=== PATIENT | male | born 1965 | race Caucasian/White ===

== ENCOUNTER 2020-09-21 08:56 | Outpatient (CLI) | payer BC, OTHER, SELFPAY ==
[2020-09-21 11:17] LABS: Anion Gap 11 mmol/L (8-16); Blood Urea Nitrogen 26 mg/dL (7-18); Calcium 9.5 mg/dL (8.5-10.1); Carbon Dioxide 29 mmol/L (21-32); Chloride 102 mmol/L (98-108); Estimated Glomerular Filt Rate 50; Glucose 145 mg/dL (70-99); Osmolality Calculated 301 mOsm/kg (285-295); Potassium 3.9 mmol/L (3.5-5.1); Sodium 142 mmol/L (136-145)
== END 2020-09-21 08:57 | disposition home or self-care (01) ==
PROVIDERS: PCP Internal Medicine; Visit Provider Internal Medicine Cardiovascular Disease
DX: Z79.899 Other long term (current) drug therapy (principal)
CPT/HCPCS: 36415; 80048

== ENCOUNTER 2020-10-24 07:59 | Outpatient (CLI) | payer BC, OTHER, SELFPAY ==
[2020-10-24 08:38] LABS: Add Urine Microscopic? YES; Appearance Urine Clear (Clear); Basophils Absolute Auto 0.07 K/mm3 (0.00-0.10); Basophils Percent Auto 0.7 % (0.0-1.0); Bilirubin Urine Negative (Negative); Blood Urine 1+ (Negative); Color Urine Yellow (Yellow); Eosinophils Absolute Auto 0.22 K/mm3 (0.02-0.50); Eosinophils Percent Auto 2.3 % (1.0-6.0); Glucose Urine UA Negative (Negative); Hematocrit 44.6 % (40.0-54.0); Hemoglobin 14.1 g/dL (14.0-18.0); Immature Granulocyte Absolute 0.06 K/mm3 (0.00-0.00); Immature Granulocyte Percent A 0.6 % (0.0-0.0); Ketones Urine Negative (Negative); Leukocyte Esterase Ur Negative (Negative); Lymphocytes Absolute Auto 2.05 K/mm3 (1.10-4.50); Lymphocytes Percent Auto 21.6 % (18.0-42.0); Mean Corpuscular HGB Conc 31.6 g/dL (32.0-36.0); Mean Corpuscular Volume 82.3 fL (78.0-102.0); Mean Platelet Volume 10.4 fl (8.7-11.0); Monocytes Absolute Auto 0.53 K/mm3 (0.10-0.90); Monocytes Percent Auto 5.6 % (2.0-11.0); Neutrophils Absolute Auto 6.5 K/mm3 (1.7-7.2); Neutrophils Percent Auto 69.2 % (50.0-70.0); Nitrate Urine Negative (Negative); Platelet Count Result 278 K/mm3 (150-420); Protein Urine Negative (Negative); Red Blood Count 5.42 M/mm3 (4.70-6.10); Red Cell Distribution Width 16.2 % (11.6-14.4); Urobilinogen Urine 0.2 mg/dL (0.2-1.0); White Blood Count 9.5 K/mm3 (4.8-10.8)
[2020-10-24 08:46] LABS: Bacteria Urine Trace /hpf; WBC Urine 0-3 /hpf (0-3)
[2020-10-24 08:55] LABS: Hemoglobin A1C 7.5 % (<5.7)
[2020-10-24 09:02] LABS: BNP 565 pg/mL (0-100)
[2020-10-24 09:25] LABS: Albumin Level 3.5 g/dL (3.4-5.0); Alkaline Phosphatase 105 U/L (46-116); Anion Gap 10 mmol/L (8-16); Aspartate Amino Transferase 10 U/L (15-37); Bilirubin,Total 1.1 mg/dL (0.00-1.00); Blood Urea Nitrogen 37 mg/dL (7-18); Carbon Dioxide 29 mmol/L (21-32); Chloride 102 mmol/L (98-108); Cholesterol 135 mg/dL (0-200); Creatine Kinase 115 U/L (39-308); Estimated Glomerular Filt Rate 45; Glucose 200 mg/dL (70-99); HDL Direct 41 mg/dL (40-60); LDL Cholesterol Calculated 79 mg/dL (<130); Osmolality Calculated 306 mOsm/kg (285-295); Potassium 5.1 mmol/L (3.5-5.1); Prostate Specific Antigen 1.3 ng/mL (< OR = 4.0); Sodium 141 mmol/L (136-145); Total Protein 7.2 g/dL (6.4-8.2); Triglycerides 77 mg/dL (0-150)
[2020-10-24 09:26] LABS: Creatinine Urine 78.75 mg/dL (40-278); MALB Creatinine Ratio 105.9 mg/g (0-30); Microalbumin Urine Random 83.4 mg/L
[2020-10-24 09:36] LABS: Alanine Aminotransferase 21 U/L (16-63)
== END 2020-10-24 08:00 | disposition home or self-care (01) ==
PROVIDERS: PCP Internal Medicine; Visit Provider Internal Medicine
DX: I50.9 Heart failure, unspecified (principal); I10 Essential (primary) hypertension; E11.65 Type 2 diabetes mellitus with hyperglycemia; E78.2 Mixed hyperlipidemia; I42.0 Dilated cardiomyopathy; Z12.5 Encounter for screening for malignant neoplasm of prostate
CPT/HCPCS: 36415; 80053; 80061; 81001; 82043; 82550; 83036; 83880; 84153; 85025; G0103

== ENCOUNTER 2021-09-25 08:18 | Outpatient (CLI) | payer BC, OTHER, SELFPAY ==
--- NOTE | ~2021-09-25 | XR_ITS ---
EXAMINATION: XR chest 2V 09/25/2021 08:48 INDICATION: Cough PROCEDURE: 2 view chest COMPARISON: Comparison to multiple prior studies sequentially, with oldest reviewed study dated 03/2015. FINDINGS: The lungs are clear. The cardiomediastinal silhouette is within normal limits. There are no pleural effusions. There is no pneumothorax suspected. IMPRESSION: 1: NO ACUTE CARDIOPULMONARY DISEASE. Reviewed, dictated and finalized at location A. STRAIGHTENER
== END 2021-09-25 08:19 | disposition home or self-care (01) ==
LOC: CHSLAB 08:20
PROVIDERS: PCP Internal Medicine; Visit Provider Nurse Practitioner Family
DX: R05.9 Cough, unspecified (principal)
CPT/HCPCS: 71046

== ENCOUNTER 2021-10-04 02:12 | Inpatient (IN) | payer BC, OTHER, SELFPAY ==
--- NOTE | ~2021-10-04 | XR_ITS ---
XR chest 1V portable DATE: 10/04/2021 03:09 INDICATION: Dyspnea. Covid-positive. TECHNIQUE: 2 portable upright AP views on 10/04/2021 at 0306 hours COMPARISON: 09/25/2021 PA and lateral chest 05/03/2019 PA and lateral chest FINDINGS: Minimal atelectasis or infiltrate is suggested at the lung bases. There is chronic elevatio n of the right leaf of the diaphragm. Aortic arch calcification. Heart size is not optimally evaluated on AP projection. IMPRESSION: Minimal atelectasis or infiltrate at the lung bases is suggested Reviewed, dictated and finalized at location A. T OFFICE CLERK
[2021-10-04 02:15] VITALS: BP 115/68; PULSE 70; RESP 18; TEMP 36.8; O2SAT 98
--- NOTE | 2021-10-04 02:39 | ED.SOB ---
HPI - SOB/Dyspnea General Chief Complaint: Shortness of Breath/Dyspnea Stated Complaint: PAIN Source: patient, family and RN notes reviewed Mode of arrival: ambulatory Limitations: no limitations History of Present Illness HPI Narrative: patient has had an on and off cough for 6 weeks. He called his primary care physician 1 week ago and had an outpatient chest x-ray that was negative and was prescribed an antibiotic for bronchitis. His daughter tested positive for COVID 2 days ago and then yesterday he began having increased shortness of breath, cough and loss of taste. MD elicited complaint: shortness of breath Pertinent past history: congestive heart failure Onset (ago): day(s) (2) Context: recent illness Timing: constant and progressively worsening Severity: moderate Exacerbating factors: lying flat, exertion and coughing Relieving factors: nothing Known history of: congestive heart failure Associated symptoms: cough Treatment prior to arrival: none Related Data Home oxygen amount: none Home Medications Medication Instructions Recorded Confirmed allopurinol 100 mg PO DAILY 10/04/21 10/04/21 atorvastatin 20 mg PO DAILY 10/04/21 10/04/21 furosemide 40 mg PO DAILY 10/04/21 10/04/21 insulin aspart U-100 [Novolog 100 unit SUBCUT DAILY 10/04/21 10/04/21 U-100 Insulin aspart] insulin detemir U-100 [Levemir 100 unit SUBCUT BID 10/04/21 10/04/21 U-100 Insulin] metformin 500 mg PO DAILY 10/04/21 10/04/21 metoprolol succinate 200 mg PO DAILY 10/04/21 10/04/21 sacubitril-valsartan [Entresto] 49 tablet PO DAILY 10/04/21 10/04/21 sacubitril-valsartan [Entresto] 49 tablet PO DAILY 10/04/21 10/04/21 spironolactone 25 mg PO DAILY 10/04/21 10/04/21 Allergies Allergy/AdvReac Type Severity Reaction Status Date / Time No Known Allergies Allergy Verified 10/04/21 04:57 Review of Systems Review of Systems: All systems reviewed & are unremarkable except as noted in HPI and below Constitutional: Constitutional: Reports chills and Denies fever(s) Cardiovascular: Cardiovascular: Denies chest pain Gastrointestinal: Gastrointestinal: Denies diarrhea, Denies nausea and Denies vomiting COUNT INCLUDES THE [facility] Past Medical History Medical History (Updated 10/04/21 @ 05:02 by Matthew Clement MD) Atrial fibrillation Congestive heart failure Gout Hyperlipidemia Hypertension Morbid obesity Sleep apnea Type 2 diabetes mellitus Surgical History Surgical History (Updated 10/04/21 @ 03:08 by Matthew Clement MD) Hx of tonsillectomy Social History Social History (Updated 10/04/21 @ 03:08 by Matthew Clement MD) Smokeless tobacco user: chewing tobacco Substance use: never Exam Const: General: no acute distress, alert and ill appearing acutely Nutritional Appearance: obese morbidly obese Orientation/consciousness: patient oriented x3 HENMT: Head: normal to inspection Ears: external ears normal Eyes: Conjunctivae: conjunctivae normal Pupils: Equal, round and reactive pupils present EOM: EOMs intact bilaterally Neck: Neck: normal visual inspection Resp: Effort & Inspection: normal respiratory effort Auscultation: diminished lung sounds diffuse Cardio: Rate: regular rate Rhythm: regular rhythm GI: GI Palp: Yes Soft to palpation and No Tenderness to palpation present (GI) Auscultation: normal bowel sounds Back/Spine/Pelvis: Cervical Spine: cervical ROM normal Thoracic/Lumbar Spine: thoraco-lumbar ROM normal Skin: General skin exam: normal color Rashes: no rashes Neuro: General: patient oriented x3, moves all extremities, no meningeal signs, no focal motor deficits and CN's II-XI intact bilaterally Speech: normal speech Gait exam (Neuro): Normal gait present Extrem: General: normal to inspection and edema bilateral (2+ to mid marks) Psych: Mental Status: mental status grossly normal Affect: normal affect Thought content: Yes Normal thought content present Course Vital Signs Vital signs: Vital Signs Temperature
--- NOTE | 2021-10-04 02:55 | ECG_ITS ---
Measurements Intervals [place] Rate: 71 P: 22 SD: 193 QRS: -65 QRSD: 157 T: 130 QT: 448 QTc: 488 Interpretive Statements SINUS RHYTHM LEFT AXIS DEVIATION LEFT BUNDLE BRANCH BLOCK BASELINE ARTIFACT- I, II, III, AVR, AVL, AVF, V1, V3-V6 ABNORMAL ECG Electronically Signed On 10-04-2021 6:33:27 ANIMAL ANATOMY TEACHER by Sushant Ac D.O.
[2021-10-04 03:12] LABS: SARS-CoV-2 RNA PCR Positive (Negative)
[2021-10-04 03:17] LABS: Basophils Absolute Auto 0.04 K/mm3 (0.00-0.10); Basophils Percent Auto 0.6 % (0.0-1.0); Eosinophils Absolute Auto 0.15 K/mm3 (0.02-0.50); Eosinophils Percent Auto 2.3 % (1.0-6.0); Hematocrit 45.2 % (40.0-54.0); Hemoglobin 13.7 g/dL (14.0-18.0); Immature Granulocyte Absolute 0.03 K/mm3 (0.00-0.00); Immature Granulocyte Percent A 0.5 % (0.0-0.0); Lymphocytes Absolute Auto 1.72 K/mm3 (1.10-4.50); Lymphocytes Percent Auto 26.6 % (18.0-42.0); Mean Corpuscular HGB Conc 30.3 g/dL (32.0-36.0); Mean Corpuscular Hemoglobin 25.7 pg (27.0-31.0); Mean Corpuscular Volume 84.8 fL (78.0-102.0); Mean Platelet Volume 10.6 fl (8.7-11.0); Monocytes Percent Auto 6.2 % (2.0-11.0); Neutrophils Absolute Auto 4.1 K/mm3 (1.7-7.2); Neutrophils Percent Auto 63.8 % (50.0-70.0); Platelet Count Result 243 K/mm3 (150-420); Red Blood Count 5.33 M/mm3 (4.70-6.10); White Blood Count 6.5 K/mm3 (4.8-10.8)
[2021-10-04 03:46] LABS: Alanine Aminotransferase 42 U/L (16-63); Albumin Level 2.9 g/dL (3.4-5.0); Alkaline Phosphatase 118 U/L (46-116); Anion Gap 9 mmol/L (8-16); Aspartate Amino Transferase 30 U/L (15-37); Bilirubin,Total 0.6 mg/dL (0.00-1.00); Blood Urea Nitrogen 32 mg/dL (7-18); CRP 4.4 mg/dL (0.0-0.9); Calcium 8.4 mg/dL (8.5-10.1); Carbon Dioxide 28 mmol/L (21-32); Chloride 103 mmol/L (98-108); Estimated CRCL calculation 71 ml/min; Estimated Glomerular Filt Rate 47; Ferritin 207 ng/mL (26-388); Glucose 157 mg/dL (70-99); NT Pro B Type Natriuretic Pept 2602 pg/mL (0-125); Osmolality Calculated 299 mOsm/kg (285-295); Potassium 4.3 mmol/L (3.5-5.1); Sodium 140 mmol/L (136-145); Total Protein 7.3 g/dL (6.4-8.2)
[2021-10-04 03:55] LABS: Lactic Acid Reflex 1.4 mmol/L (0.4-2.0)
[2021-10-04 04:58] VITALS: BP 145/88; PULSE 73; RESP 18; O2SAT 97
[2021-10-04 05:31] VITALS: BMI 52.6
[2021-10-04 06:00] VITALS: BP 118/68; PULSE 70; RESP 22; TEMP 36.8; O2SAT 95
--- NOTE | 2021-10-04 06:20 | ADMGEN ---
This patient, Erich Wilkes, was admitted to 2nd Floor Room 207-2. Patient/family oriented to hospital policies and general routines including ID bracelet, bed and alarms, visiting hours, pain management, procedures, bathroom and other care routines, personal items, smoking policy, room service/diet, and visiting hours. Information on how to activate the Rapid Response Team has been discussed. Patient/Family are encouraged to report perceived risks to care and to ask questions if they do not understand what they are told or what they should do.
[2021-10-04] MEDS: REMDESIVIR 200 MG/NS 250 ML 200 MG/250 ML BAG 250 MG IVPB (07:01)
[2021-10-04 07:04] LABS: Alanine Aminotransferase 40 U/L (16-63); Estimated CRCL calculation 79 ml/min; Estimated Glomerular Filt Rate 49
[2021-10-04 07:30] LABS: INR 1.1; Prothrombin Time 11.8 Seconds (9.50-12.10)
[2021-10-04 08:00] VITALS: BP 102/62; PULSE 68; RESP 18; TEMP 36.3; O2SAT 96
[2021-10-04 08:03] LABS: Glucose Point of Care 187 mg/dl (65-105)
[2021-10-04] MEDS: ATORVASTATIN 10 MG TABLET 20 MG PO (09:24)
[2021-10-04] MEDS: metFORMIN HCL 500 MG TABLET PO (09:24)
[2021-10-04 09:25] VITALS: PULSE 68
[2021-10-04] MEDS: SPIRONOLACTONE 25 MG TABLET PO (09:25)
[2021-10-04] MEDS: allopurinoL 100 MG TABLET PO (09:25)
[2021-10-04] MEDS: FUROSEMIDE 40 MG TABLET PO (09:25)
[2021-10-04] MEDS: METOPROLOL SUCCINATE EXT REL 50 MG TABCR 200 MG PO (09:25)
[2021-10-04] MEDS: SACUBITRIL/VALSARTAN 49-51 MG TABLET 1 TABLET PO (09:26)
[2021-10-04] MEDS: BARICITINIB 2 MG TABLET 4 MG PO (11:29)
--- NOTE | 2021-10-04 11:38 | PM.IMHP ---
H&P: HPI History of Present Illness Date/Time: 10/04/21 11:38 [age]-year-old male who presented to urgent care with complaints of a fall shortness of breath. Patient has a past medical history of A. fib, congestive heart failure, gout, hyperlipidemia, hypertension, morbidly obese, sleep apnea type 2 diabetes. According to patient he has been experiencing a cough for approximately 1 month he did call his primary care physician who diagnosed him with bronchitis and gave him antibiotics. Per patient his condition did improve but returned. Patient presented to our emergency department yesterday due to shortness of breath. He did test positive for COVID but has not experiencing any other symptoms. Vital signs 106/64, 64, 20, 97.4, 95% on room air WBC 6.5, hemoglobin 13.7, hematocrit 45.2, platelets 243, sodium 140, potassium 4.3, BUN 32, creatinine 1.53, glucose 157, lactic acid 1.4, CRP 4.4, BNP 2602, EKG sinus rhythm with a heart rate of 71. Patient is anxious to discharge today he will discharge home with medication for supportive care. Review of Systems Review of Systems: A 14 organ system Review of Systems was performed and pertinent positives included in the HPI, otherwise remaining ROS is negative. [facility] Past Medical History Medical History (Updated 10/06/21 @ 14:01 by KIKA Chaudhary) Atrial fibrillation Congestive heart failure Gout Hyperlipidemia Hypertension Morbid obesity Sleep apnea Type 2 diabetes mellitus Surgical History Surgical History (Updated 10/04/21 @ 03:08 by Matthew Clement MD) Hx of tonsillectomy Family History Family History (Updated 10/04/21 @ 06:15 by Shlomo Kirkland RN) Father Cancer Mother Kidney disease Other Diabetes mellitus Social History Social History (Updated 10/04/21 @ 03:08 by Matthew Clement MD) Smoking status: Never smoker Smokeless tobacco user: chewing tobacco Alcohol intake: current Drinks per week: 1 Substance use: never Spiritual care concerns: Yes (rastafari) Meds Home Medications and Allergies Home Medications Medication Instructions Recorded Confirmed Type Entresto 1 tablet PO BID 10/04/21 10/04/21 History Levemir U-100 Insulin See Rx Instructions .ROUTE .COMPLEX 10/04/21 10/04/21 History albuterol sulfate [Proventil HFA] 4 puff INHALATION Q2H PRN #1 g 10/04/21 Rx allopurinol 100 mg PO DAILY 10/04/21 10/04/21 History atorvastatin 20 mg PO DAILY 10/04/21 10/04/21 History benzonatate 200 mg PO BID #30 cap 10/04/21 Rx budesonide-formoterol [Symbicort] 2 puff INHALATION Q12H #10.2 g 10/04/21 Rx dexamethasone 6 mg PO DAILY 9 Days #9 tablet 10/04/21 Rx fluticasone propionate [Flonase 1 spray INTRANASAL BID 21 Days g 10/04/21 Rx Allergy Relief] furosemide 40 mg PO BID #0 tablet 10/04/21 10/04/21 Rx guaifenesin 400 mg PO QID 14 Days #56 tablet 10/04/21 Rx insulin aspart U-100 [Novolog 80 unit SUBCUT TIDWM 10/04/21 10/04/21 History U-100 Insulin aspart] metformin 500 mg PO DAILY 10/04/21 10/04/21 History metoprolol succinate 200 mg PO DAILY 10/04/21 10/04/21 History spironolactone 25 mg PO DAILY 10/04/21 10/04/21 History Allergies Allergy/AdvReac Type Severity Reaction Status Date / Time No Known Allergies Allergy Verified 10/04/21 04:57 Vital Signs Vital Signs - 24 hr 10/04/21 02:15 10/04/21 04:58 10/04/21 06:00 Temperature 98.2 F 98.3 F Pulse Rate 70 73 70 Respiratory Rate 18 18 22 H Blood Pressure 115/68 145/88 H 118/68 Pulse Oximetry 98 97 95 10/04/21 08:00 10/04/21 09:25 Temperature 97.4 F L Pulse Rate 68 68 Respiratory Rate 18 Blood Pressure 102/62 Pulse Oximetry 96 Exam Narrative: GENERAL: This is a well-nourished, well-developed patient, in no apparent distress. HEAD: normocephalic, atraumatic. EYES: PERRL. Sclera clear/white. Vision is grossly intact. EARS: External ears normal, auditory canals clear and without drainage, TMs normal without perforation. Hearing grossly intact.
[2021-10-04 12:00] VITALS: BP 106/64; PULSE 64; RESP 20; TEMP 36.3; O2SAT 95
--- NOTE | 2021-10-04 14:18 | PM.SD2 ---
Same Day Admit/Disch: HPI History of Present Illness Chief complaint: COVID CHF Narrative: Erich Wilkes is a 55 year old male who presented to urgent care with complaints of a fall shortness of breath. Patient has a past medical history of A. fib, congestive heart failure, gout, hyperlipidemia, hypertension, morbidly obese, sleep apnea type 2 diabetes. According to patient he has been experiencing a cough for approximately 1 month he did call his primary care physician who diagnosed him with bronchitis and gave him antibiotics. Per patient his condition did improve but returned. Patient presented to our emergency department yesterday due to shortness of breath. He did test positive for COVID but has not experiencing any other symptoms. Vital signs 106/64, 64, 20, 97.4, 95% on room air WBC 6.5, hemoglobin 13.7, hematocrit 45.2, platelets 243, sodium 140, potassium 4.3, BUN 32, creatinine 1.53, glucose 157, lactic acid 1.4, CRP 4.4, BNP 2602, EKG sinus rhythm with a heart rate of 71. Patient is anxious to discharge today he will discharge home with medication for supportive care. [facility] Past Medical History Medical History (Updated 10/06/21 @ 14:01 by KIKA Chaudhary) Atrial fibrillation Congestive heart failure Gout Hyperlipidemia Hypertension Morbid obesity Sleep apnea Type 2 diabetes mellitus Surgical History Surgical History (Updated 10/04/21 @ 03:08 by Matthew Clement MD) Hx of tonsillectomy Family History Family History (Updated 10/04/21 @ 06:15 by Shlomo Kirkland RN) Father Cancer Mother Kidney disease Other Diabetes mellitus Social History Social History (Updated 10/04/21 @ 03:08 by Matthew Clement MD) Smoking status: Never smoker Smokeless tobacco user: chewing tobacco Alcohol intake: current Drinks per week: 1 Substance use: never Spiritual care concerns: Yes (protestant) Same Day Admit/Disch: Med Pre-admit Medications Home Medications Medication Instructions Recorded Confirmed Type Entresto 1 tablet PO BID 10/04/21 10/04/21 History Levemir U-100 Insulin See Rx Instructions .ROUTE .COMPLEX 10/04/21 10/04/21 History albuterol sulfate [Proventil HFA] 4 puff INHALATION Q2H PRN #1 g 01/17/22 Rx allopurinol 100 mg PO DAILY 10/04/21 10/04/21 History atorvastatin 20 mg PO DAILY 10/04/21 10/04/21 History benzonatate 200 mg PO BID #30 cap 10/04/21 Rx budesonide-formoterol [Symbicort] 2 puff INHALATION Q12H #10.2 g 10/04/21 Rx dexamethasone 6 mg PO DAILY 9 Days #9 tablet 10/04/21 Rx fluticasone propionate [Flonase 1 spray INTRANASAL BID 21 Days g 10/04/21 Rx Allergy Relief] furosemide 40 mg PO BID #0 tablet 10/04/21 10/04/21 Rx guaifenesin 400 mg PO QID 14 Days #56 tablet 10/04/21 Rx insulin aspart U-100 [Novolog 80 unit SUBCUT TIDWM 10/04/21 10/04/21 History U-100 Insulin aspart] metformin 500 mg PO DAILY 10/04/21 10/04/21 History metoprolol succinate 200 mg PO DAILY 10/04/21 10/04/21 History spironolactone 25 mg PO DAILY 10/04/21 10/04/21 History Exam Narrative: GENERAL: This is a well-nourished, well-developed patient, in no apparent distress. HEAD: normocephalic, atraumatic. EYES: PERRL. Sclera clear/white. Vision is grossly intact. EARS: External ears normal, auditory canals clear and without drainage, TMs normal without perforation. Hearing grossly intact. NOSE: External nose normal with no obvious nasal discharge, nares without redness, no rhinorrhea. THROAT: Mucous membranes moist, posterior pharynx clear. NECK: Neck supple, non-tender without lymphadenopathy, masses or thyromegaly. CARDIOVASCULAR: Regular rate and rhythm without murmurs, gallops, or rubs. RESPIRATORY: Diminished lung sounds throughout GASTROINTESTINAL: Abdomen soft, non-tender, nondistended. Bowel sounds are active. No hepato-splenomegaly, or palpable masses. No guarding. SKIN: warm, intact with no suspicious lesions or rash, good texture and turgor. NEURO: awake, alert, and orie
--- NOTE | 2021-10-06 10:32 | PC.NURSE ---
Pt states he received and understood his discharge instructions. Pt states it took a long time in the emergency room but it was great on the floor, all the nurses were great .
== END 2021-10-04 12:45 | disposition home or self-care (01) | DRG 178 ==
LOC: CHSED 04:49 → CHS2ND 05:06
PROVIDERS: Admitting Provider Emergency Medicine; Emergency Provider Emergency Medicine; PCP Internal Medicine; Visit Provider Emergency Medicine
DX: U07.1 COVID-19 (principal); I48.20 Chronic atrial fibrillation, unspecified; I11.0 Hypertensive heart disease with heart failure; I50.23 Acute on chronic systolic (congestive) heart failure; E78.5 Hyperlipidemia, unspecified; E11.9 Type 2 diabetes mellitus without complications; M10.9 Gout, unspecified; G47.30 Sleep apnea, unspecified; N17.9 Acute kidney failure, unspecified; I50.9 Heart failure, unspecified; E66.01 Morbid (severe) obesity due to excess calories
CPT/HCPCS: 36415; 71045; 80053; 82565; 82728; 82948; 83605; 83735; 83880; 84460; 85025; 85610; 86140; 93005; 99285; A9270; C9803; U0003; U0005

== ENCOUNTER 2021-10-28 07:00 | Outpatient (CLI) | payer BC, OTHER, SELFPAY ==
[2021-10-28 07:29] LABS: Basophils Absolute Auto 0.06 K/mm3 (0.00-0.10); Basophils Percent Auto 0.6 % (0.0-1.0); Eosinophils Absolute Auto 0.37 K/mm3 (0.02-0.50); Hematocrit 45.5 % (40.0-54.0); Hemoglobin 14.2 g/dL (14.0-18.0); Immature Granulocyte Absolute 0.07 K/mm3 (0.00-0.00); Immature Granulocyte Percent A 0.8 % (0.0-0.0); Lymphocytes Absolute Auto 1.81 K/mm3 (1.10-4.50); Lymphocytes Percent Auto 19.5 % (18.0-42.0); Mean Corpuscular HGB Conc 31.2 g/dL (32.0-36.0); Mean Corpuscular Hemoglobin 26.2 pg (27.0-31.0); Mean Corpuscular Volume 83.9 fL (78.0-102.0); Mean Platelet Volume 10.7 fl (8.7-11.0); Monocytes Absolute Auto 0.42 K/mm3 (0.10-0.90); Monocytes Percent Auto 4.5 % (2.0-11.0); Neutrophils Absolute Auto 6.5 K/mm3 (1.7-7.2); Neutrophils Percent Auto 70.6 % (50.0-70.0); Platelet Count Result 283 K/mm3 (150-420); Red Blood Count 5.42 M/mm3 (4.70-6.10); Red Cell Distribution Width 17.4 % (11.6-14.4); White Blood Count 9.3 K/mm3 (4.8-10.8)
[2021-10-28 07:31] LABS: Appearance Urine Clear (Clear); Bilirubin Urine Negative (Negative); Color Urine Yellow (Yellow); Glucose Urine UA Negative (Negative); Ketones Urine Negative (Negative); Leukocyte Esterase Ur Negative LEU/UL (Negative); Nitrate Urine Negative (Negative); Protein Urine 2+ (Negative); Specific Grav Ur 1.025 (1.010-1.020)
[2021-10-28 07:40] LABS: Add Urine Microscopic? YES; Bacteria Urine Trace /hpf; Blood Urine Trace-Intact (Negative); RBC Urine 0-2 /hpf (0-2); WBC Urine None seen /hpf (0-3)
[2021-10-28 07:46] LABS: Hemoglobin A1C 8.1 % (<5.7)
[2021-10-28 08:59] LABS: Alanine Aminotransferase 43 U/L (16-63); Alkaline Phosphatase 112 U/L (46-116); Anion Gap 12 mmol/L (8-16); Aspartate Amino Transferase 19 U/L (15-37); Blood Urea Nitrogen 25 mg/dL (7-18); Calcium 8.4 mg/dL (8.5-10.1); Carbon Dioxide 26 mmol/L (21-32); Chloride 102 mmol/L (98-108); Cholesterol 150 mg/dL (0-200); Creatine Kinase 111 U/L (39-308); Estimated Glomerular Filt Rate 58; Free T3 2.51 pg/mL (2.18-3.98); Glucose 149 mg/dL (70-99); HDL Direct 49 mg/dL (40-60); LDL Cholesterol Calculated 88 mg/dL (<130); Osmolality Calculated 297 mOsm/kg (285-295); Potassium 4.5 mmol/L (3.5-5.1); Sodium 140 mmol/L (136-145); Thyroid Stimulating Hormone 0.94 uIU/mL (0.36-3.74); Total Protein 6.6 g/dL (6.4-8.2); Triglycerides 64 mg/dL (0-150)
== END 2021-10-28 07:01 | disposition home or self-care (01) ==
LOC: CHSLAB 07:02
PROVIDERS: PCP Internal Medicine; Visit Provider Internal Medicine
DX: E78.2 Mixed hyperlipidemia (principal); I10 Essential (primary) hypertension; E11.65 Type 2 diabetes mellitus with hyperglycemia
CPT/HCPCS: 36415; 80053; 80061; 81001; 82550; 83036; 84439; 84443; 84481; 85025

== ENCOUNTER 2021-12-10 07:04 | Outpatient (CLI) | payer BC, OTHER, SELFPAY ==
[2021-12-10 08:15] LABS: Anion Gap 11 mmol/L (8-16); Blood Urea Nitrogen 35 mg/dL (7-18); Calcium 8.9 mg/dL (8.5-10.1); Carbon Dioxide 26 mmol/L (21-32); Chloride 102 mmol/L (98-108); Estimated Glomerular Filt Rate 49; Glucose 172 mg/dL (70-99); NT Pro B Type Natriuretic Pept 1903 pg/mL (0-125); Osmolality Calculated 300 mOsm/kg (285-295); Potassium 4.4 mmol/L (3.5-5.1); Prostate Specific Antigen 1.6 ng/mL (< OR = 4.0); Sodium 139 mmol/L (136-145)
== END 2021-12-10 07:05 | disposition home or self-care (01) ==
LOC: CHSIMG 07:06
PROVIDERS: PCP Internal Medicine; Visit Provider Internal Medicine
DX: Z00.00 Encounter for general adult medical examination without abnormal findings (principal); I50.9 Heart failure, unspecified; Z12.5 Encounter for screening for malignant neoplasm of prostate; I42.0 Dilated cardiomyopathy
CPT/HCPCS: 36415; 80048; 83880; 84153; 93306; G0103

== ENCOUNTER 2022-05-18 07:00 | Outpatient (CLI) | payer BC, OTHER, SELFPAY ==
[2022-05-18 07:14] LABS: Appearance Urine Clear (Clear); Basophils Absolute Auto 0.09 K/mm3 (0.00-0.10); Basophils Percent Auto 0.8 % (0.0-1.0); Bilirubin Urine Negative (Negative); Color Urine Yellow (Yellow); Eosinophils Absolute Auto 0.21 K/mm3 (0.02-0.50); Glucose Urine UA Negative (Negative); Hematocrit 46.7 % (40.0-54.0); Hemoglobin 14.8 g/dL (14.0-18.0); Immature Granulocyte Absolute 0.06 K/mm3 (0.00-0.00); Immature Granulocyte Percent A 0.6 % (0.0-0.0); Ketones Urine Negative (Negative); Leukocyte Esterase Ur Negative LEU/UL (Negative); Lymphocytes Absolute Auto 2.45 K/mm3 (1.10-4.50); Mean Corpuscular HGB Conc 31.7 g/dL (32.0-36.0); Mean Corpuscular Hemoglobin 27.1 pg (27.0-31.0); Mean Corpuscular Volume 85.4 fL (78.0-102.0); Mean Platelet Volume 10.5 fl (8.7-11.0); Monocytes Absolute Auto 0.53 K/mm3 (0.10-0.90); Neutrophils Absolute Auto 7.3 K/mm3 (1.7-7.2); Neutrophils Percent Auto 68.6 % (50.0-70.0); Nitrate Urine Negative (Negative); Platelet Count Result 269 K/mm3 (150-420); Protein Urine 1+ (Negative); Red Blood Count 5.47 M/mm3 (4.70-6.10); Red Cell Distribution Width 15.9 % (11.6-14.4); Specific Grav Ur 1.025 (1.010-1.020); White Blood Count 10.6 K/mm3 (4.8-10.8)
[2022-05-18 07:36] LABS: Add Urine Microscopic? YES; Bacteria Urine Trace /hpf; Blood Urine Trace-Intact (Negative); RBC Urine 0-2 /hpf (0-2); WBC Urine None seen /hpf (0-3)
[2022-05-18 07:47] LABS: Alanine Aminotransferase 22 U/L (16-63); Albumin Level 3.4 g/dL (3.4-5.0); Alkaline Phosphatase 110 U/L (46-116); Anion Gap 8 mmol/L (8-16); Aspartate Amino Transferase 18 U/L (15-37); Blood Urea Nitrogen 37 mg/dL (7-18); Carbon Dioxide 27 mmol/L (21-32); Chloride 103 mmol/L (98-108); Cholesterol 120 mg/dL (0-200); Creatine Kinase 161 U/L (39-308); Estimated Glomerular Filt Rate 45; Free T3 2.53 pg/mL (2.18-3.98); Free T4 Free Thyroxine 1.12 ng/dL (0.76-1.46); Glucose 88 mg/dL (70-99); HDL Direct 41 mg/dL (40-60); LDL Cholesterol Calculated 61 mg/dL (<130); Osmolality Calculated 293 mOsm/kg (285-295); Prostate Specific Antigen 1.4 ng/mL (< OR = 4.0); Sodium 138 mmol/L (136-145); Thyroid Stimulating Hormone 1.61 uIU/mL (0.36-3.74); Total Protein 7.4 g/dL (6.4-8.2); Triglycerides 88 mg/dL (0-150)
== END 2022-05-18 07:01 | disposition home or self-care (01) ==
LOC: CHSLAB 07:01
PROVIDERS: PCP Internal Medicine; Visit Provider Internal Medicine
DX: E78.2 Mixed hyperlipidemia (principal); I10 Essential (primary) hypertension; E11.65 Type 2 diabetes mellitus with hyperglycemia; Z12.5 Encounter for screening for malignant neoplasm of prostate
CPT/HCPCS: 36415; 80053; 80061; 81001; 82550; 83036; 84153; 84439; 84443; 84481; 85025; G0103

== ENCOUNTER 2022-10-06 14:33 | Outpatient (CLI) | payer BC, OTHER, SELFPAY ==
--- NOTE | ~2022-10-06 | XR_ITS ---
XR chest 2V DATE: 10/06/2022 15:25 INDICATION: Cough, dyspnea, wheezing for 2 weeks TECHNIQUE: PA and lateral views COMPARISON: 10/04/2021 portable AP chest 09/25/2021 2 view chest 05/03/2019 2 view chest FINDINGS: There is chronic prominent elevation of the right leaf of the diaphragm. Cardiomegaly. Aortic arch calcification. Is mild atelectasis at the lung bases, right greater than left. The lungs otherwise appear clear. No pleural effusion or pulmonary vascular congestion or pneumothorax. IMPRESSION: Cardiomegaly, aortic atherosclerosis Chronic elevation right diaphragm Mild atelectasis at the lung bases Reviewed, dictated and finalized at location L. ER MEASURER
[2022-10-06 15:25] LABS: Basophils Absolute Auto 0.08 K/mm3 (0.00-0.10); Eosinophils Absolute Auto 0.16 K/mm3 (0.02-0.50); Hematocrit 45.6 % (40.0-54.0); Hemoglobin 14.3 g/dL (14.0-18.0); Immature Granulocyte Absolute 0.04 K/mm3 (0.00-0.00); Immature Granulocyte Percent A 0.5 % (0.0-0.0); Lymphocytes Absolute Auto 1.56 K/mm3 (1.10-4.50); Lymphocytes Percent Auto 19.3 % (18.0-42.0); Mean Corpuscular HGB Conc 31.4 g/dL (32.0-36.0); Mean Corpuscular Hemoglobin 26.8 pg (27.0-31.0); Mean Corpuscular Volume 85.6 fL (78.0-102.0); Mean Platelet Volume 10.7 fl (8.7-11.0); Monocytes Absolute Auto 0.57 K/mm3 (0.10-0.90); Monocytes Percent Auto 7.1 % (2.0-11.0); Neutrophils Absolute Auto 5.7 K/mm3 (1.7-7.2); Neutrophils Percent Auto 70.1 % (50.0-70.0); Platelet Count Result 255 K/mm3 (150-420); Red Blood Count 5.33 M/mm3 (4.70-6.10); Red Cell Distribution Width 16.4 % (11.6-14.4); White Blood Count 8.1 K/mm3 (4.8-10.8)
[2022-10-06 15:49] LABS: Alanine Aminotransferase 35 U/L (16-63); Alkaline Phosphatase 167 U/L (46-116); Anion Gap 11 mmol/L (8-16); Aspartate Amino Transferase 29 U/L (15-37); Bilirubin,Total 1.7 mg/dL (0.00-1.00); Blood Urea Nitrogen 33 mg/dL (7-18); Calcium 8.5 mg/dL (8.5-10.1); Carbon Dioxide 30 mmol/L (21-32); Chloride 103 mmol/L (98-108); Estimated Glomerular Filt Rate 47; Glucose 177 mg/dL (70-99); NT Pro B Type Natriuretic Pept 6675 pg/mL (0-125); Osmolality Calculated 309 mOsm/kg (285-295); Potassium 3.7 mmol/L (3.5-5.1); Sodium 144 mmol/L (136-145)
== END 2022-10-06 14:34 | disposition home or self-care (01) ==
LOC: CHSLAB 14:35
PROVIDERS: PCP Internal Medicine; Visit Provider Internal Medicine
DX: R05.9 Cough, unspecified (principal); R06.00 Dyspnea, unspecified; I51.7 Cardiomegaly; I70.0 Atherosclerosis of aorta; R91.8 Other nonspecific abnormal finding of lung field; J98.11 Atelectasis
CPT/HCPCS: 36415; 71046; 80053; 83880; 85025; 87040

== ENCOUNTER 2022-12-21 07:22 | Outpatient (CLI) | payer BC, OTHER, SELFPAY ==
[2022-12-21 07:37] LABS: Basophils Absolute Auto 0.08 K/mm3 (0.00-0.10); Basophils Percent Auto 1.1 % (0.0-1.0); Eosinophils Absolute Auto 0.16 K/mm3 (0.02-0.50); Eosinophils Percent Auto 2.2 % (1.0-6.0); Hematocrit 46.5 % (40.0-54.0); Hemoglobin 14.9 g/dL (14.0-18.0); Immature Granulocyte Absolute 0.03 K/mm3 (0.00-0.00); Immature Granulocyte Percent A 0.4 % (0.0-0.0); Lymphocytes Absolute Auto 2.14 K/mm3 (1.10-4.50); Lymphocytes Percent Auto 29.9 % (18.0-42.0); Mean Corpuscular Hemoglobin 27.4 pg (27.0-31.0); Mean Corpuscular Volume 85.6 fL (78.0-102.0); Mean Platelet Volume 11.2 fl (8.7-11.0); Monocytes Absolute Auto 0.43 K/mm3 (0.10-0.90); Neutrophils Absolute Auto 4.3 K/mm3 (1.7-7.2); Neutrophils Percent Auto 60.4 % (50.0-70.0); Platelet Count Result 240 K/mm3 (150-420); Red Blood Count 5.43 M/mm3 (4.70-6.10); Red Cell Distribution Width 18.9 % (11.6-14.4); White Blood Count 7.2 K/mm3 (4.8-10.8)
[2022-12-21 08:36] LABS: Alanine Aminotransferase 33 U/L (16-63); Albumin Level 3.1 g/dL (3.4-5.0); Alkaline Phosphatase 238 U/L (46-116); Anion Gap 11 mmol/L (8-16); Aspartate Amino Transferase 30 U/L (15-37); Bilirubin,Total 2.2 mg/dL (0.00-1.00); Blood Urea Nitrogen 31 mg/dL (7-18); Calcium 8.7 mg/dL (8.5-10.1); Carbon Dioxide 27 mmol/L (21-32); Chloride 105 mmol/L (98-108); Cholesterol 91 mg/dL (0-200); Creatine Kinase 99 U/L (39-308); Estimated Glomerular Filt Rate 45; Free T3 2.49 pg/mL (2.18-3.98); Free T4 Free Thyroxine 1.54 ng/dL (0.76-1.46); Glucose 96 mg/dL (70-99); HDL Direct 37 mg/dL (40-60); LDL Cholesterol Calculated 44 mg/dL (<130); Osmolality Calculated 302 mOsm/kg (285-295); Prostate Specific Antigen 1.4 ng/mL (< OR = 4.0); Sodium 143 mmol/L (136-145); Thyroid Stimulating Hormone 1.88 uIU/mL (0.36-3.74); Total Protein 6.5 g/dL (6.4-8.2); Triglycerides 50 mg/dL (0-150)
[2022-12-21 09:17] LABS: Appearance Urine Clear (Clear); Bilirubin Urine Negative (Negative); Blood Urine Negative (Negative); Color Urine Yellow (Yellow); Glucose Urine UA Negative (Negative); Ketones Urine Negative (Negative); Leukocyte Esterase Ur Negative LEU/UL (Negative); Nitrate Urine Negative (Negative); Protein Urine 3+ (Negative); Specific Grav Ur 1.025 (1.010-1.020); pH Urine 6.5 (5.0-8.0)
[2022-12-21 09:23] LABS: Add Urine Microscopic? YES; Bacteria Urine None seen /hpf; RBC Urine 0-2 /hpf (0-2); Squamous Epithelial Cell Urine Few /hpf (Few); WBC Urine 0-3 /hpf (0-3)
[2022-12-21 09:24] LABS: Mucus Urine Few /lpf
[2022-12-21 12:25] LABS: Hemoglobin A1C 7.4 % (<5.7)
== END 2022-12-21 07:23 | disposition home or self-care (01) ==
LOC: CHSLAB 07:25
PROVIDERS: PCP Internal Medicine; Visit Provider Internal Medicine
DX: E78.2 Mixed hyperlipidemia (principal); I10 Essential (primary) hypertension; E11.65 Type 2 diabetes mellitus with hyperglycemia; N18.31 Chronic kidney disease, stage 3a; Z12.5 Encounter for screening for malignant neoplasm of prostate
CPT/HCPCS: 36415; 80053; 80061; 81001; 82550; 83036; 84153; 84439; 84443; 84481; 85025; G0103

== ENCOUNTER 2023-01-03 07:09 | Outpatient (CLI) | payer BC, OTHER, SELFPAY ==
--- NOTE | ~2023-01-03 | US_ITS ---
Abdominal Sonogram: Real-time sonographic imaging of the abdomen was performed. Clinical History: Abdominal pain Findings: The liver appears heterogeneous, with no evidence of mass lesion or bile duct dilatation. Main portal vein demonstrates normal direction of flow. The spleen is upper limits of normal in size without evidence of focal lesion. The gallbladder is well distended, and appears normal with no evid ence of gallstone. Questionable gallbladder wall thickening up to 9 mm. The common bile duct measures 4 mm. The visualized pancreas, aorta, and IVC are unremarkable. The right kidney measures 11.8 cm in length and the left kidney measures 12.5 cm. There is no hydronephrosis or renal calculus. Impression: Suspected gallbladder wall thickening without definite gallstone. This is a nonspecific finding. Probable fatty infiltration of the liver. Reviewed, dictated and finalized at [facility] M. Impression: Suspected gallbladder wall thickening without definite gallstone. This is a non specific finding. Probable fatty infiltration of the liver.
== END 2023-01-03 07:10 | disposition home or self-care (01) ==
LOC: CHSIMG 07:11
PROVIDERS: PCP Internal Medicine; Visit Provider Internal Medicine
DX: R10.9 Unspecified abdominal pain (principal); R18.8 Other ascites; N18.4 Chronic kidney disease, stage 4 (severe)
CPT/HCPCS: 76700

== ENCOUNTER 2023-01-09 08:15 | Outpatient (CLI) | payer BC, OTHER, SELFPAY | END 2023-01-09 08:16 | disposition home or self-care (01) | LOC: CHSIMG 08:17 | PROVIDERS: PCP Internal Medicine; Visit Provider Internal Medicine | DX: K80.20 Calculus of gallbladder without cholecystitis without obstruction (principal) | CPT/HCPCS: 99199 ==

== ENCOUNTER 2023-01-16 07:17 | Outpatient (CLI) | payer BC, OTHER, SELFPAY ==
[2023-01-16 07:30] LABS: Collection Time Urine 24 HOURS
[2023-01-16 08:04] LABS: Creatinine Urine 108.79 mg/dL (40-278); Patient Weight 403 Lbs
[2023-01-16 08:15] LABS: Creatinine Clearance Urine 44.9 ml/min (97-137); Serum Creat 1.44; Total Volume 24 Hour Urine 1400 ml
[2023-01-16 09:29] LABS: Total Protein Urine 24 Hr 1064 mg/24hr (0-149)
== END 2023-01-16 07:18 | disposition home or self-care (01) ==
LOC: CHSLAB 07:19
PROVIDERS: PCP Internal Medicine; Visit Provider Internal Medicine
DX: N18.30 Chronic kidney disease, stage 3 unspecified (principal); R80.9 Proteinuria, unspecified
CPT/HCPCS: 81050; 82575; 84156

== ENCOUNTER 2023-03-05 03:44 | Emergency (ER) | payer BC, OTHER, SELFPAY ==
[2023-03-05] VITALS (10 sets, daily range): BP systolic 59–90; BP diastolic 40–66; PULSE 72–90; RESP 24–30; TEMP 36.6–36.9; O2SAT 88–98
--- NOTE | ~2023-03-05 | XR_ITS ---
XR chest 1V portable DATE: 03/05/2023 04:28 INDICATION: Dyspnea TECHNIQUE: Portable upright AP chest on 03/05/2023 at 0426 hours COMPARISON: 10/06/2022 PA and lateral chest FINDINGS: Chronic elevation right diaphragm is again noted. Cardiomegaly. There is pulmonary vascular congestion and redistribution suggesting mild congestive he art failure. No pulmonary consolidation or pleural effusion or pneumothorax is noted. IMPRESSION: Cardiomegaly, pulmonary vascular congestion and redistribution, suggesting mild CHF Reviewed, dictated and finalized at location A. IMPRESSION: Cardiomegaly, pulmonary vascular congestion and redistribution, sug gesting mild CHF
[2023-03-05] MEDS: SODIUM CHLORIDE 0.9% IV 500 ML 999 ML IV CONT (04:01)
--- NOTE | 2023-03-05 04:03 | ECG_ITS ---
Measurements Intervals [place] Rate: 90 P: 121 NE: 108 QRS: 0 QRSD: -2 T: 0 QT: 98 QTc: 120 Interpretive Statements ECTOPIC ATRIAL RHYTHM WITH SHORT NE INTERVAL WITH OCCASIONAL ECTOPIC PREMATURE COMPLEXES POSSIBLE RIGHT ATRIAL ENLARGEMENT [0.25mV P-WAVE] POSSIBLE LEFT ATRIAL ENLARGEMENT [-0.1mV P-WAVE IN V1/V2] LEFT AXIS DEVIATION LEFT BUNDLE-BRANCH BLOCK ABNORMAL ECG COMPARED TO ECG 10/04/2021 03:42:57 ECTOPIC ATRIAL RHYTHM NOW PRESENT Electronically Signed On 03-05-2023 9:17:33 CDT by Aldo Parham M.D.
--- NOTE | 2023-03-05 04:15 | ED.GENADULT ---
HPI - General Adult General Chief complaint: Shortness of Breath/Dyspnea Stated complaint: Wounds on both Legs History of Present Illness HPI narrative: This is a morbidly obese 57-year-old male with a history of heart failure, hypertension, diabetes chronic kidney disease ED for shortness of breath. @ 5:00 p.m. today the patient started having a coughing fit and afterwards was feeling shaky/chills. He then developed shortness of breath approximately 1 hour prior to arrival. He was found to be 87% on RA. He denies fever, chills, chest pain, or urinary symptoms. He admits to abdominal pain but it has been going on for 1-2 years and is unchanged today. He is suppossed to see a surgeon as is potentially his gallbladder but he has not followed up.Denies urinary symptoms. He has had increased swelling of his legs and belly. He recently saw a steamtable attendant railroad seek increased his Lasix about 1 month ago from 40 mg b.i.d, to 80mg/40mg. Related Data Home Medications Medication Instructions Recorded Confirmed atorvastatin 20 mg tablet 20 mg PO DAILY 10/04/21 02/11/23 insulin detemir U-100 100 unit/mL See Rx Instructions .Route .COMPLEX 10/04/21 02/11/23 subcutaneous solution (Levemir U-100 Insulin) aspirin 81 mg tablet,delayed 81 mg PO DAILY 01/24/23 02/11/23 release cetirizine 10 mg capsule (Zyrtec) 10 mg PO DAILY PRN 01/24/23 02/11/23 insulin aspart U-100 100 unit/mL 80 unit subcut USEASDIRECTD 01/24/23 02/11/23 subcutaneous solution (Novolog U-100 Insulin aspart) metformin 500 mg tablet 1,000 mg PO DAILY 01/24/23 02/11/23 metoprolol succinate 200 mg 200 mg PO DAILY 01/24/23 02/11/23 tablet,extended release 24 hr Allergies Allergy/AdvReac Type Severity Reaction Status Date / Time No Known Allergies Allergy Verified 01/24/23 16:43 [facility] Past Medical History Medical History Atrial fibrillation Congestive heart failure Gout Hyperlipidemia Hypertension Morbid obesity Sleep apnea Type 2 diabetes mellitus Surgical History Surgical History Hx of tonsillectomy Family History Family History Father Cancer Mother Kidney disease Other Diabetes mellitus Social History Social History Smoking status: Never smoker Smokeless tobacco user: chewing tobacco Alcohol intake: current Drinks per week: 1 Substance use: never Lack of Transportation: No Lack of Food: Never True Current Housing: I Have Housing Concerned About Future Housing: No Difficulty Paying Gas/Electric Bills: No Difficulty Paying for Meds: No Currently Unemployed: No Education: Bachelor's Degree Living arrangements: with family Gender identity (if verbalized by the patient): Male Spiritual care concerns: Yes (yazidism) Exam Narrative: APPEARANCE: appears chronically unwell, 2-3 word dyspnea Head: atraumatic. EYES: EOMI, NOSE: Atraumatic NECK: Trachea midline RESPIRATORY: tachypneic, accessory muscle use, decreased lung sounds in all [place] CARDIOVASCULAR: RRR, edema the lower extremities and abdomen ABDOMINAL: obese, edematous no focal areas of tenderness MUSCULOSKELETAl: No obvious deformities NEURO: Alert. Moving 4/4 extremities SKIN:: multiple chronic wounds on the patient's legs PSYCHIATRIC: Normal affect Course Vital Signs Vital signs: Vital Signs Temperature 98.5 F 03/05/23 03:44 Pulse Rate 89 03/05/23 03:44 Respiratory Rate 24 H 03/05/23 03:44 Blood Pressure 72/60 L 03/05/23 03:44 Pulse Oximetry 88 L 03/05/23 03:44 Oxygen Delivery Room Air 03/05/23 03:44 Temperature 98.5 F 03/05/23 03:44 Pulse Rate 85 03/05/23 05:26 Respiratory Rate 28 H 03/05/23 05:12 Blood Pressure 79/49 L 03/05/23 05:26 Pulse Oximetry 96 03/05/23 05:12 O
[2023-03-05 04:50] LABS: Basophils Absolute Auto 0.07 K/mm3 (0.00-0.10); Basophils Percent Auto 0.4 % (0.0-1.0); Eosinophils Absolute Auto 0.04 K/mm3 (0.02-0.50); Eosinophils Percent Auto 0.2 % (1.0-6.0); Hematocrit 42.2 % (40.0-54.0); Hemoglobin 13.8 g/dL (14.0-18.0); Immature Granulocyte Absolute 0.19 K/mm3 (0.00-0.00); Immature Granulocyte Percent A 1.1 % (0.0-0.0); Lymphocytes Absolute Auto 0.99 K/mm3 (1.10-4.50); Lymphocytes Percent Auto 5.5 % (18.0-42.0); Mean Corpuscular HGB Conc 32.7 g/dL (32.0-36.0); Mean Corpuscular Hemoglobin 28.3 pg (27.0-31.0); Mean Corpuscular Volume 86.7 fL (78.0-102.0); Mean Platelet Volume 10.8 fl (8.7-11.0); Monocytes Absolute Auto 1.11 K/mm3 (0.10-0.90); Monocytes Percent Auto 6.2 % (2.0-11.0); Neutrophils Absolute Auto 15.6 K/mm3 (1.7-7.2); Neutrophils Percent Auto 86.6 % (50.0-70.0); Platelet Count Result 234 K/mm3 (150-420); Red Blood Count 4.87 M/mm3 (4.70-6.10); Red Cell Distribution Width 17.4 % (11.6-14.4)
[2023-03-05] MEDS: CEFEPIME 2 GM/NS 50 ML 2 GM/50 ML BAG IVPB (04:50)
[2023-03-05] MEDS: NOREPINEPHRINE 8 MG/D5W 250 ML 8 MG/250 ML BAG 9.38 MG IV CONT (04:55)
[2023-03-05 04:58] LABS: INR 1.4; Partial Thromboplastin Time 30.8 SEC (23.90-30.70)
[2023-03-05 05:06] LABS: Alanine Aminotransferase 37 U/L (16-63); Albumin Level 2.7 g/dL (3.4-5.0); Alkaline Phosphatase 249 U/L (46-116); Anion Gap 13 mmol/L (8-16); Aspartate Amino Transferase 40 U/L (15-37); Bilirubin,Total 4.3 mg/dL (0.00-1.00); Blood Urea Nitrogen 32 mg/dL (7-18); Calcium 8.4 mg/dL (8.5-10.1); Carbon Dioxide 23 mmol/L (21-32); Chloride 102 mmol/L (98-108); Estimated CRCL calculation 55 ml/min; Estimated Glomerular Filt Rate 33; Glucose 84 mg/dL (70-99); Lipase 17 U/L (16-77); Magnesium 1.4 mg/dL (1.8-2.4); NT Pro B Type Natriuretic Pept 17987 pg/mL (0-125); Osmolality Calculated 291 mOsm/kg (285-295); Phosphorus 3.1 mg/dL (2.6-4.7); Potassium 4.3 mmol/L (3.5-5.1); Sodium 138 mmol/L (136-145); Total Protein 6.6 g/dL (6.4-8.2); Troponin I 44.5 ng/L (0.00-60.4)
[2023-03-05 05:28] LABS: Influenza A QL RT-PCR Negative (Negative); Influenza B QL RT-PCR Negative (Negative); RSV RNA, RT-PCR Negative (Negative); SARS-CoV-2 RNA PCR Negative (Negative)
[2023-03-05] MEDS: HYDROmorphone HCL INJ (*CRX) 2 MG/ML VIAL 0.5 MG IV PUSH (06:17)
--- NOTE | 2023-03-05 06:46 | PC.NURSE ---
0410 NS stopped due to CXR & Fluid over load
[2023-03-05 07:46] LABS: Reflex Lactic Acid Yes or No Add Lactic
[2023-03-05 14:19] LABS: Glucose Point of Care 84 mg/dl (65-105)
--- NOTE | 2023-03-11 13:52 | PC.NURSE ---
Final blood culture report: No growth after 5 days, no change in treatment needed.
== END 2023-03-05 06:40 | disposition short-term general hospital (02) ==
PROVIDERS: Emergency Provider Emergency Medicine; PCP Internal Medicine
DX: N17.9 Acute kidney failure, unspecified (principal); I95.9 Hypotension, unspecified; R82.2 Biliuria; I13.0 Hypertensive heart and chronic kidney disease with heart failure and stage 1 through stage 4 chronic kidney disease, or unspecified chronic kidney disease; I50.9 Heart failure, unspecified; N18.9 Chronic kidney disease, unspecified; E11.22 Type 2 diabetes mellitus with diabetic chronic kidney disease; I48.91 Unspecified atrial fibrillation; E78.5 Hyperlipidemia, unspecified; Z79.4 Long term (current) use of insulin; Z20.822 Contact with and (suspected) exposure to COVID-19
CPT/HCPCS: 36415; 71045; 80053; 82948; 83605; 83690; 83735; 83880; 84100; 84484; 85025; 85610; 85730; 87040; 87637; 93005; 96365; 96366; 96367; 96375; 99285; J0692; J1170; J3370; J7030

== ENCOUNTER 2023-04-13 10:56 | Outpatient (NON) | payer OTHER, SELFPAY ==
[2023-04-13 11:15] LABS: Hematocrit 28.9 % (40.0-54.0); Hemoglobin 8.9 g/dL (14.0-18.0); Mean Corpuscular HGB Conc 30.8 g/dL (32.0-36.0); Mean Corpuscular Hemoglobin 26.9 pg (27.0-31.0); Mean Corpuscular Volume 87.3 fL (78.0-102.0); Mean Platelet Volume 10.5 fl (8.7-11.0); Platelet Count Result 257 K/mm3 (150-420); Red Blood Count 3.31 M/mm3 (4.70-6.10); Red Cell Distribution Width 17.4 % (11.6-14.4); White Blood Count 7.6 K/mm3 (4.8-10.8)
[2023-04-13 11:29] LABS: Band Neutrophils Percent 1 % (0-6); Basophils Absolute Manual 0.07 K/mm3 (0-0.1); Basophils Percent Manual 1 % (0-1); Eosinophils Absolute Manual 0.98 K/mm3 (0.02-0.5); Eosinophils Percent Manual 13 % (1-6); Lymphocytes Absolute Manual 1.29 K/mm3 (1.1-4.5); Lymphocytes Percent Manual 17 % (18-44); Monocytes Absolute Manual 0.45 K/mm3 (0.1-0.90); Monocytes Percent Manual 6 % (3-9); Neutrophils Absolute Manual 4.78 K/mm3 (1.3-6.7); Neutrophils Percent Manual 62 % (46-73); Platelet Estimate Adequate (Adequate); Total Cells Counted 100
[2023-04-13 11:30] LABS: Alanine Aminotransferase 35 U/L (16-63); Albumin Level 2.7 g/dL (3.4-5.0); Alkaline Phosphatase 204 U/L (46-116); Anion Gap 10 mmol/L (8-16); Aspartate Amino Transferase 28 U/L (15-37); Bilirubin,Total 1.4 mg/dL (0.00-1.00); Blood Urea Nitrogen 67 mg/dL (7-18); Calcium 8.7 mg/dL (8.5-10.1); Carbon Dioxide 28 mmol/L (21-32); Chloride 95 mmol/L (98-108); Estimated Glomerular Filt Rate 23; Glucose 169 mg/dL (70-99); Osmolality Calculated 299 mOsm/kg (285-295); Potassium 3.4 mmol/L (3.5-5.1); Sodium 133 mmol/L (136-145); Total Protein 7.5 g/dL (6.4-8.2)
== END 2023-04-13 10:57 | disposition home or self-care (01) ==
LOC: CHSLAB 11:00
DX: I50.9 Heart failure, unspecified (principal)
CPT/HCPCS: 36415; 80053; 85025

== ENCOUNTER 2023-04-20 09:13 | Outpatient (NON) | payer OTHER, SELFPAY ==
[2023-04-20 09:21] LABS: Basophils Percent Auto 1.5 % (0.0-1.0); Eosinophils Absolute Auto 0.46 K/mm3 (0.02-0.50); Eosinophils Percent Auto 6.8 % (1.0-6.0); Hematocrit 26.8 % (40.0-54.0); Hemoglobin 8.6 g/dL (14.0-18.0); Immature Granulocyte Absolute 0.06 K/mm3 (0.00-0.00); Immature Granulocyte Percent A 0.9 % (0.0-0.0); Lymphocytes Percent Auto 22.2 % (18.0-42.0); Mean Corpuscular HGB Conc 32.1 g/dL (32.0-36.0); Mean Corpuscular Hemoglobin 27.7 pg (27.0-31.0); Mean Corpuscular Volume 86.2 fL (78.0-102.0); Mean Platelet Volume 9.4 fl (8.7-11.0); Monocytes Absolute Auto 0.42 K/mm3 (0.10-0.90); Monocytes Percent Auto 6.2 % (2.0-11.0); Neutrophils Absolute Auto 4.2 K/mm3 (1.7-7.2); Neutrophils Percent Auto 62.4 % (50.0-70.0); Platelet Count Result 321 K/mm3 (150-420); Red Blood Count 3.11 M/mm3 (4.70-6.10); Red Cell Distribution Width 17.1 % (11.6-14.4); White Blood Count 6.8 K/mm3 (4.8-10.8)
[2023-04-20 09:33] LABS: Anion Gap 9 mmol/L (8-16); Blood Urea Nitrogen 62 mg/dL (7-18); Calcium 8.9 mg/dL (8.5-10.1); Carbon Dioxide 26 mmol/L (21-32); Chloride 101 mmol/L (98-108); Estimated Glomerular Filt Rate 26; Glucose 108 mg/dL (70-99); Osmolality Calculated 300 mOsm/kg (285-295); Potassium 4.4 mmol/L (3.5-5.1); Sodium 136 mmol/L (136-145)
[2023-04-22 09:21] LABS: Ferritin 53 ng/mL (26-388); Iron 27 ug/dL (65-175)
== END 2023-04-20 09:14 | disposition home or self-care (01) ==
LOC: CHSLAB 09:14
PROVIDERS: Visit Provider Internal Medicine
DX: R57.0 Cardiogenic shock (principal)
CPT/HCPCS: 36415; 80048; 82728; 83540; 85025

== ENCOUNTER 2023-04-27 11:15 | Outpatient (NON) | payer OTHER, SELFPAY ==
[2023-04-27 11:28] LABS: Basophils Percent Auto 1.1 % (0.0-1.0); Eosinophils Absolute Auto 0.11 K/mm3 (0.02-0.50); Eosinophils Percent Auto 1.3 % (1.0-6.0); Hematocrit 27.5 % (40.0-54.0); Hemoglobin 8.4 g/dL (14.0-18.0); Immature Granulocyte Absolute 0.09 K/mm3 (0.00-0.00); Lymphocytes Absolute Auto 1.35 K/mm3 (1.10-4.50); Lymphocytes Percent Auto 15.4 % (18.0-42.0); Mean Corpuscular HGB Conc 30.5 g/dL (32.0-36.0); Mean Corpuscular Hemoglobin 26.3 pg (27.0-31.0); Mean Corpuscular Volume 85.9 fL (78.0-102.0); Mean Platelet Volume 9.5 fl (8.7-11.0); Monocytes Percent Auto 5.7 % (2.0-11.0); Neutrophils Absolute Auto 6.6 K/mm3 (1.7-7.2); Neutrophils Percent Auto 75.5 % (50.0-70.0); Platelet Count Result 345 K/mm3 (150-420); White Blood Count 8.7 K/mm3 (4.8-10.8)
[2023-04-27 11:41] LABS: Anion Gap 10 mmol/L (8-16); Blood Urea Nitrogen 47 mg/dL (7-18); Calcium 8.5 mg/dL (8.5-10.1); Carbon Dioxide 24 mmol/L (21-32); Chloride 103 mmol/L (98-108); Estimated Glomerular Filt Rate 23; Glucose 200 mg/dL (70-99); Osmolality Calculated 302 mOsm/kg (285-295); Potassium 4.4 mmol/L (3.5-5.1); Sodium 137 mmol/L (136-145)
== END 2023-04-27 11:16 | disposition home or self-care (01) ==
LOC: CHSLAB 11:18
DX: R57.0 Cardiogenic shock (principal)
CPT/HCPCS: 36415; 80048; 85025

== ENCOUNTER 2023-05-15 13:27 | Outpatient (NON) | payer OTHER, SELFPAY ==
[2023-05-15 13:39] LABS: Basophils Absolute Auto 0.14 K/mm3 (0.00-0.10); Basophils Percent Auto 1.2 % (0.0-1.0); Eosinophils Absolute Auto 0.25 K/mm3 (0.02-0.50); Eosinophils Percent Auto 2.1 % (1.0-6.0); Hematocrit 32.5 % (40.0-54.0); Hemoglobin 10.1 g/dL (14.0-18.0); Immature Granulocyte Absolute 0.12 K/mm3 (0.00-0.00); Lymphocytes Absolute Auto 1.14 K/mm3 (1.10-4.50); Lymphocytes Percent Auto 9.6 % (18.0-42.0); Mean Corpuscular HGB Conc 31.1 g/dL (32.0-36.0); Mean Corpuscular Hemoglobin 24.5 pg (27.0-31.0); Mean Corpuscular Volume 78.9 fL (78.0-102.0); Mean Platelet Volume 9.3 fl (8.7-11.0); Monocytes Absolute Auto 0.57 K/mm3 (0.10-0.90); Monocytes Percent Auto 4.8 % (2.0-11.0); Neutrophils Absolute Auto 9.7 K/mm3 (1.7-7.2); Neutrophils Percent Auto 81.3 % (50.0-70.0); Platelet Count Result 451 K/mm3 (150-420); Red Blood Count 4.12 M/mm3 (4.70-6.10); Red Cell Distribution Width 18.4 % (11.6-14.4); White Blood Count 11.9 K/mm3 (4.8-10.8)
[2023-05-15 14:06] LABS: Anion Gap 9 mmol/L (8-16); Blood Urea Nitrogen 60 mg/dL (7-18); Calcium 7.9 mg/dL (8.5-10.1); Carbon Dioxide 28 mmol/L (21-32); Chloride 98 mmol/L (98-108); Estimated Glomerular Filt Rate 19; Glucose 193 mg/dL (70-99); NT Pro B Type Natriuretic Pept 7853 pg/mL (0-125); Osmolality Calculated 301 mOsm/kg (285-295); Potassium 4.4 mmol/L (3.5-5.1); Sodium 135 mmol/L (136-145)
== END 2023-05-15 13:28 | disposition home or self-care (01) ==
LOC: CHSLAB 13:31
DX: I50.9 Heart failure, unspecified (principal)
CPT/HCPCS: 36415; 80048; 83880; 85025